=== PATIENT | female | born 1980 | race Caucasian/White ===

== ENCOUNTER 2023-01-06 16:31 | Emergency (ER) | payer OTHER, SELFPAY ==
[2023-01-06 16:37] VITALS: BP 145/87; PULSE 76; RESP 18; TEMP 36.3; O2SAT 100; BMI 26.5
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
== END 2023-01-06 17:22 | disposition home or self-care (01) ==
LOC: ED 17:12
PROVIDERS: Emergency Provider Family Medicine
DX: S06.0X0A Concussion without loss of consciousness, initial encounter (principal)
CPT/HCPCS: 99283; 99284